=== PATIENT | female | born 1960 | race African-American/Black ===

== ENCOUNTER 2016-02-25 05:43 | Day surgery (SDC) | payer OTHER ==
[2016-02-22 12:25] LABS: HEMATOCRIT 35.2 % (36.0-47.0); HEMOGLOBIN 11.1 g/dL (12.0-15.5); HGB HCT DIFFERENCE -1.9; MEAN CORPUSCULAR HEMOGLOBIN 21.6 pg (27.0-33.4); MEAN CORPUSCULAR HGB CONC 31.7 g/dL (32.0-36.0); MEAN CORPUSCULAR VOLUME 68 fl (80-97); RED BLOOD COUNT 5.16 10^6/uL (3.72-5.28); RED CELL DISTRIBUTION WIDTH 16.9 % (11.5-14.0); WHITE BLOOD COUNT 8.3 10^3/uL (4.0-10.5)
[2016-02-22 12:28] LABS: PROTHROMBIN TIME 12.6 SEC (11.4-15.4)
[2016-02-22 12:29] LABS: PARTIAL THROMBOPLASTIN TIME 28.7 SEC (23.5-35.8)
[2016-02-22 12:41] LABS: POTASSIUM 3.6 mmol/L (3.6-5.0); SODIUM 146.5 mmol/L (137-145)
--- NOTE | 2016-02-22 13:47 | EKG REPORT ---
SEVERITY:- ABNORMAL ECG - SINUS RHYTHM NONSPECIFIC T ABNORMALITIES, ANTERIOR LEADS : Confirmed by: Maciej Salomon 22-Feb-2016 13:47:08
[~2016-02-25 05:43] MED LIST: CEFAZOLIN 2 GM/D5W RTU 2 GM/50 ML RTUPB IV PRN; LACTATED RINGERS 1000 ML IV PRN; LIDOCAINE 0.5% INJ-PF (5 MG/ML) 50 ML SDV SUBCUT PRN
[2016-02-25] MEDS ORDERED: HYDROMORPHONE HCL INJ/PF 2 MG/ML AMPULE ONE (06:51)
[2016-02-25] MEDS ORDERED: MIDAZOLAM 2 MG/2 ML INJ ONE (06:51)
[2016-02-25] MEDS ORDERED: FENTANYL CITRATE INJ/PF 250 MCG/5 ML AMPULE ONE (06:51)
[2016-02-25] MEDS ORDERED: EPHEDRINE SULFATE INJ 50 MG/1 ML AMPULE ONE (06:52)
[2016-02-25] MEDS ORDERED: PROPOFOL INJ 200 MG/20 ML VIAL IV ONE (06:52)
[2016-02-25] MEDS ORDERED: ACETAMINOPHEN 100 ML IV ONE (06:52)
[2016-02-25] MEDS ORDERED: DEXMEDETOMIDINE INJ 80 MCG/20 ML VIAL IV ONE (06:52)
[2016-02-25] MEDS ORDERED: FAMOTIDINE INJ/PF 20 MG/2 ML SDV IV ONE (07:23)
[2016-02-25] MEDS ORDERED: ALBUTEROL SULFATE 0.083% NEB 2.5 MG/3 ML AMPUL NEB ONE (07:23)
[2016-02-25] MEDS ORDERED: METOCLOPRAMIDE HCL INJ/PF 10 MG/2 ML SDV ONE (07:23)
[2016-02-25] MEDS ORDERED: MEPERIDINE HCL/PF INJ 25 MG/1 ML DISP.SYRIN IV PRN (08:00)
[2016-02-25] MEDS ORDERED: DIPHENHYDRAMINE HCL 50 MG/ML VIAL IV PRN (08:00)
[2016-02-25] MEDS ORDERED: MORPHINE SULFATE 10 MG/ML INJ IV PRN ×3 (08:00→15:00)
[2016-02-25] MEDS ORDERED: OXYCODONE-ACETAMINOPHEN 5-325 MG TABLET PO PRN ×2 (08:00)
[2016-02-25] MEDS ORDERED: ONDANSETRON HCL INJ/PF 4 MG/2 ML SDV IV PRN ×2 (08:00→15:00)
[2016-02-25] MEDS ORDERED: FENTANYL CITRATE INJ/PF 100 MCG/2 ML AMPUL IV PRN ×3 (08:00)
[2016-02-25] MEDS ORDERED: PROMETHAZINE HCL INJ 25 MG/1 ML VIAL IV PRN ×3 (08:00→15:00)
[2016-02-25] MEDS ORDERED: BUPIVACAINE HCL 0.25 % INJ/PF (2.5 MG/1 ML) 30 ML VIAL ONE (08:12)
[2016-02-25] MEDS ORDERED: ONDANSETRON HCL INJ/PF 4 MG/2 ML SDV ONE (12:45)
[2016-02-25] MEDS ORDERED: LIDOCAINE 2% INJ-PF (20 MG/ML) 10 ML AMPUL ONE (12:45)
[2016-02-25] MEDS ORDERED: VECURONIUM BROMIDE INJ 10 MG VIAL IV ONE (12:45)
[2016-02-25] MEDS ORDERED: SUCCINYLCHOLINE CHLORIDE INJ 200 MG/10 ML VIAL ONE (12:45)
[2016-02-25] MEDS ORDERED: GLYCOPYRROLATE INJ 0.4 MG/2 ML VIAL ONE (12:45)
[2016-02-25] MEDS ORDERED: DEXAMETHASONE SOD PHOSPHATE INJ 4 MG/1 ML VIAL ONE (12:45)
[2016-02-25] MEDS ORDERED: NEOSTIGMINE METHYLSULFATE 10 MG/10 ML VIAL ONE (12:45)
[2016-02-25] MEDS ORDERED: NALOXONE HCL INJ/PF 0.4 MG/1 ML SDV ONE (13:19)
[2016-02-25] MEDS ORDERED: NALOXONE HCL INJ 2 MG/2 ML DISP.SYRIN IV ONE (13:22)
[2016-02-25] MEDS: ACETAMINOPHEN INJ/PF 1000 MG/100 ML SDV IV SCH (18:54)
[2016-02-25] MEDS: KETOROLAC TROMETHAMINE INJ/PF 30 MG/1 ML SDV IV SCH (22:17)
[2016-02-25] MEDS ORDERED: DOCUSATE SODIUM 100 MG CAPSULE PO ONE (23:00)
[2016-02-26] MEDS: ACETAMINOPHEN INJ/PF 1000 MG/100 ML SDV IV SCH ×2 (00:04→05:44)
[2016-02-26] MEDS: KETOROLAC TROMETHAMINE INJ/PF 30 MG/1 ML SDV IV SCH (05:44)
[2016-02-26 06:11] LABS: ABSOLUTE BASOPHILS # (AUTO) 0.1 10^3/uL (0.0-0.2); ABSOLUTE NEUT (AUTO) 9.5 10^3/uL (1.7-8.2); BASOPHILS % (AUTO) 0.4 % (0-2); HEMATOCRIT 26.6 % (36.0-47.0); HEMOGLOBIN 8.5 g/dL (12.0-15.5); HGB HCT DIFFERENCE -1.1; LYMPHOCYTES % (AUTO) 27.4 % (13-45); MEAN CORPUSCULAR HEMOGLOBIN 21.4 pg (27.0-33.4); MEAN CORPUSCULAR HGB CONC 31.8 g/dL (32.0-36.0); MEAN CORPUSCULAR VOLUME 67 fl (80-97); MONOCYTES % (AUTO) 7.1 % (3-13); RED BLOOD COUNT 3.95 10^6/uL (3.72-5.28); RED CELL DISTRIBUTION WIDTH 16.9 % (11.5-14.0); SEGMENTED NEUTROPHILS % (AUTO) 65.1 % (42-78); WHITE BLOOD COUNT 14.5 10^3/uL (4.0-10.5)
[2016-02-26 06:33] LABS: ALANINE AMINOTRANSFERASE 26 U/L (9-52); ALBUMIN 3.6 g/dL (3.5-5.0); ALKALINE PHOSPHATASE 64 U/L (38-126); ANION GAP 13 (5-19); ASPARTATE AMINO TRANSFERASE 19 U/L (14-36); BILIRUBIN,TOTAL 0.7 mg/dL (0.2-1.3); BLOOD UREA NITROGEN 11 mg/dL (7-20); CALCIUM 9.4 mg/dL (8.4-10.2); CARBON DIOXIDE 26 mmol/L (22-30); CHLORIDE 106 mmol/L (98-107); CREATININE RESULT 0.84 mg/dL (0.52-1.25); GLUCOSE 81 mg/dL (75-110); POTASSIUM 3.6 mmol/L (3.6-5.0); SODIUM 144.7 mmol/L (137-145); TOTAL PROTEIN 6.3 g/dL (6.3-8.2)
[2016-02-26] MEDS ORDERED: HYDROCODONE/ACETAMINOPHEN 5-325 MG TABLET PO PRN (07:37)
[2016-02-26] MEDS ORDERED: METFORMIN HCL 500 MG TABLET PO SCH (08:00)
[2016-02-26] MEDS ORDERED: FERROUS SULFATE 325 MG TABLET PO SCH (09:00)
[2016-02-26] MEDS ORDERED: LORATADINE 10 MG TABLET PO SCH (10:00)
[2016-02-26] MEDS ORDERED: HYDROCHLOROTHIAZIDE 25 MG TABLET PO SCH (10:00)
[2016-02-26] MEDS ORDERED: FINASTERIDE 5 MG TABLET PO SCH (10:00)
[2016-02-26 11:27] VITALS: BP 125/55
[2016-02-26] MEDS ORDERED: DOCUSATE SODIUM 100 MG CAPSULE PO SCH (22:00)
--- NOTE | 2016-03-04 07:48 | OPERATIVE REPORT E ---
Operative Report NAME: RUBY SOSA : 1960 AGE: 56Y DATE OF SURGERY: 02/25/2016 ROOM: 206 INDICATIONS: This is a 56-year-old female with large known fibroid uterus with previous normal endometrial biopsy who continues to have irregular and heavy bleeding requiring iron for anemia and pelvic pressure symptoms who desires definitive management for large known fibroid uterus, approximately 16 to 18 weeks in size. After discussing the risks, benefits, alternatives and indications, the patient desires to proceed with robotic-assisted total laparoscopic hysterectomy and bilateral salpingectomy for removal of large fibroid uterus to avoid laparotomy. PREOPERATIVE DIAGNOSIS: SYMPTOMATIC FIBROID UTERUS WITH ANEMIA. POSTOPERATIVE DIAGNOSIS: SYMPTOMATIC FIBROID UTERUS WITH ANEMIA. OPERATION: 1. Robotic-assisted total laparoscopic hysterectomy and bilateral salpingectomy. 2. Cystoscopy. 3. Robotic dissection/myomectomy of largest fibroid. SURGEON: JAZMIN FELIX M.D. COUTURIERE: Sarahy Gómez MD ESTIMATED BLOOD LOSS: 250 mL. TOTAL FLUIDS: 1600 mL. URINE OUTPUT: Approximately 200 mL. FINDINGS: 1. Large fibroid uterus. 2. Normal-appearing bilateral ovaries and bilateral fallopian tubes. 3. Normal bladder with normal-appearing bilateral ureteral orifices with flow identified bilaterally postoperatively. 4. Normal abdominal cavity, normal omentum, small bowel and large bowel and liver with normal bilateral ureters without evidence of hydronephrosis postoperatively. SPECIMENS: Uterus and separate large fibroid. PROCEDURE IN DETAIL: After confirming the consent with the patient in the preoperative holding area, the patient was taken to the main OR where general anesthesia was found to be adequate. The patient was then prepped and draped in a sterile fashion and placed in low lithotomy position on Gelfoam pad. The patient was meticulously positioned, making sure no impingements on lower extremity nerves and arms were tucked. The patient was placed and a padded chest wrap placed across her chest. The patient was then placed in maximal Trendelenburg position with no evidence of sliding. At this point in time, an operative time-out was performed. The patient received 2 g of Ancef prior to incision. Attention was turned to the patient's vagina where the anterior lip of the cervix was grasped with a single-tooth tenaculum and the uterus was sounded to approximately 12 cm. A medium VCare uterine manipulator was then brought onto the field and the tip placed to the fundus and inflated. VCare cup was then attached to the cervix using interrupted stitch of 0 Vicryl on a UR6 and then secured in place. All instruments were removed from the vagina and the attention was turned to the patient's abdomen where a site approximately 8 cm superior to the umbilicus was infused with 0.25% Marcaine in the midline. An approximately 12 mm incision was made horizontally and while tenting up the anterior abdominal wall, Veress needle was placed into the abdominal cavity with an appropriate drop in pressure to approximately 2 mmHg. The abdomen was then insufflated to approximately 15 mmHg with gas on high flow, after which a 12 mm trocar was then placed into the abdomen blindly and then laparoscope placed to confirm proper placement. At this point in time, the abdominal viscera and omentum were then inspected and noted to be without evidence of injury or bleeding. The findings were noted as above. At this point in time, attention was turned to the patient's right-hand side approximately 9 cm to the right and 2 cm superior to the midline incision which was identified and infused with 0.25% Marcaine and an approximately 10 cm incision was made for placement of the 8 mm AirSeal port which was done under direct visualization without difficulty. Attention was then turned to the right lower quadrant approximately 10 cm lateral and inferior to the pathology assistant trocar port was then infused with 0.25% Marcaine, marked and incised and the 8 mm robotic port placed under direct visualization without difficulty. Attention was then turned to the left-hand side where a second #2 robotic port was then placed approximately 8 cm laterally and 2 cm superior to the midline incision. The site was identified and infused with 0.25% Marcaine and marked and incised and #2 robotic arm port placed without difficulty under direct visualization. Lastly, a port site in the left lower quadrant approximately 10 cm lateral and inferior to the #2 robotic arm site was identified, infused with 0.25% Marcaine, marked and incised and a third robotic arm placed under direct visualization without evidence of injury to the intraabdominal contents. At this point in time, all robotic ports were in place and the patient was then placed in steep Trendelenburg position in preparation for docking. Robot was then side docked in a normal fashion. The #1 arm was armed with monopolar scissors, the #2 arm with fenestrated bipolar graspers and the #3 arm with a Prograsp. Then attention was turned to the uterus. Starting on the right-hand side, the right fallopian tube was from the mesosalpinx using a combination of bipolar cautery and monopolar scissors. Once at the utero-ovarian ligament, it was cauterized x3 and taken down with monopolar scissors staying more adjacent to the uterus as the anatomy was distorted more on the right-hand side than the left-hand side due to the large fibroid uterus. The right broad ligament was then identified and incised and taken down anteriorly and posteriorly. A bladder flap was created on the anterior portion and taken down to estimated junction of the internal os on the right-hand side; however, due to the lack of good landmarks, attention was then turned to the left-hand side. The left fallopian tube was also from the mesosalpinx in a similar fashion using bipolar cautery and monopolar scissors. The left utero-ovarian artery was then coagulated x3 and incised with monopolar scissors and taken down going towards the broad ligament with excellent hemostasis. The left broad ligament was then opened, coagulated x2 and then incised with monopolar scissors and then taken down adjacent to the uterus. Using a combination of sharp and blunt dissection, the left broad ligament was opened and first taken down on the anterior leaf to approximately the junction of the internal os. The left uterine artery was skeletonized. At this point in time, the bladder flap was created starting on the left-hand side and carrying it far across to the right-hand side with good identification of the areolar fascia between the bladder and the uterus. This was swept down inferiorly on the left-hand side and across the majority of the anterior portion of the uterus. The posterior portion of the bladder flap was taken down to the level of the uterosacral ligaments on the left-hand side and the posterior portion of the uterus over the uterine cup was taken down and incised for later colpotomy. Attention was then turned back to the right-hand side and using previous bladder flap, the right broad ligament was then taken down adjacent to the uterus down to the level of the bladder flap and then continued across the midline and the bladder elevated and swept inferiorly over the level of the uterine manipulator cup. The uterine vasculature and arteries and broad ligament were taken down adjacent to the uterus to make sure to stay as far away from the broad ligament as possible, making sure maximum lateral tension is taken all the way down to the level of the right uterine artery which was then coagulated x3 and incised. At this point in time, the uterosacral ligaments were identified and cardinal ligaments were then taken down with a combination of coagulation adjacent to the uterus and cervix making sure to incise over the medial aspect with excellent hemostasis and taken down with a manipulator, making sure to stay medial and away from the ureters that were not easily identified. Attention was turned to the left-hand side where the left uterine artery was taken with bipolar cautery and then incised and then the left cardinal ligament was then taken down making sure to keep the ureters on maximal lateral traction to the patient's right, allowing the cardinal ligament to fall away with dissection over the uterine Lucero manipulator cup. Once at the level of the manipulator cup, the incision was then carried around on the posterior edge and prepped for a colpotomy. Attention was turned to the anterior side. The colpotomy was started on the anterior right-sided and carried around to the left in a counter-clockwise fashion. Once this anterior colpotomy was started, attention was then turned to the right-hand side and then carried in a clockwise manner on the anterior right-hand side around to the posterior portion of the uterus at the vaginal cervical junction. Colpotomy was then completed on the posterior side, at which point in time the uterus was deemed to be free. At this point in time, the uterus was attempted to be delivered vaginally and it was noted to be unable to be completed that way due to the narrowness of the patient's pelvis. Vaginal morcellation was extremely difficult and so making sure to not use any energy, the large posterior fibroid approximately 8 to 10 cm in diameter was dissected and from the uterus using a combination of sharp dissection and traction using laparoscopic and robotic tenaculums to separate the fibroid from the uterus. Once this was completed, the uterus was delivered by itself and then the large posterior fibroid that was approximately 10 cm. At this point in time, the pelvis was irrigated copiously and noted to be hemostatic. The ureter was easily identified on the left-hand side and was difficult to identify on the right-hand side due to previous distortion of the anatomy and adhesions over the pelvic brim that did not allow for easy identification. Good hemostasis was noted. The vaginal cuff was then closed with a 2-0 V-Loc suture in a running nonlocking fashion starting on the right-hand side, making sure to incorporate the uterosacral ligament into the right apex and going across the left-hand side incorporating the left uterosacral ligament to the left apex. At this point in time, the robotic portion of the surgery was completed. Attention was turned to the patient's vagina, which was then irrigated. Robotic arms were detached and the patient was taken out of the position and placed on a level plane and cystoscopy performed with the findings as noted above. Repeat look from above after cystoscopy noted no hydroureter and decision was made to close. Attention was turned to the midline robotic port. All the gas was allowed to escape from the robotic ports and the robot was then undocked in the normal fashion. Please note that after removal of the uterus, the #1 arm was armed with a Shiv Suture Cut Needle [employer] and the #2 arm replaced with the Prograsp and #3 arm was armed with the robotic tenaculum for the myomectomy, but then removed for cuff closure. The midline incision was then closed with interrupted suture of 0 Monocryl on a UR6 needle after being grasped with Kochers and tented anteriorly. The skin was then closed with interrupted sutures of 4-0 Monocryl and then Dermabond dressing applied. The patient was then recovered from anesthesia without difficulty, placed on the table in supine position and taken to the PACU in stable condition. All sponge, instrument and needle counts were correct x2 and the patient tolerated the procedure without difficulty. DICTATING PHYSICIAN: JAZMIN FELIX M.D. [id number] PHY#: [id number] ID: [id number] JOB#: [id number] ACCT: [id number] cc:JAZMIN FELIX M.D. >
== END 2016-02-26 13:05 | disposition home or self-care (01) ==
LOC: OROUT 05:43 → 2N 14:47 → OROUT 02-26 13:05
PROVIDERS: ATTEND Obstetrics & Gynecology
PROC: 0UTC4ZZ Resection of Cervix, Percutaneous Endoscopic Approach (ICD-10-PCS; 2016-02-25)
PROC: 0UT74ZZ Resection of Bilateral Fallopian Tubes, Percutaneous Endoscopic Approach (ICD-10-PCS; 2016-02-25)
PROC: 8E0W4CZ Robotic Assisted Procedure of Trunk Region, Percutaneous Endoscopic Approach (ICD-10-PCS; 2016-02-25)
PROC: 0UT94ZZ Resection of Uterus, Percutaneous Endoscopic Approach (ICD-10-PCS; principal; 2016-02-25 07:30)
DX: D25.9 Leiomyoma of uterus, unspecified (principal); N72 Inflammatory disease of cervix uteri; D64.9 Anemia, unspecified; N93.9 Abnormal uterine and vaginal bleeding, unspecified; E11.9 Type 2 diabetes mellitus without complications; J45.909 Unspecified asthma, uncomplicated; M19.90 Unspecified osteoarthritis, unspecified site; G43.909 Migraine, unspecified, not intractable, without status migrainosus; Z79.84 Long term (current) use of oral hypoglycemic drugs
CPT/HCPCS: 58573; S2900; 36415; 76775; 80051; 80053; 81025; 82962; 840; 85025; 85027; 85610; 85730; 86850; 86900; 86901; 88307; 93005; 93010; J0131; J0330; J0690; J1100; J1170; J1885; J2250; J2310; J2405; J2704; J2765; J3010; J3490; J7120; S0028